=== PATIENT | male | born 1975 | race African-American/Black ===

== ENCOUNTER 2017-08-08 07:49 | Emergency (ER) | payer SELFPAY ==
[2017-08-08] MEDS ORDERED: Ketorolac Tromethamine 30 MG/ML VIAL ONE (08:13)
--- NOTE | 2017-08-08 09:01 | RAD ---
PA AND LATERAL CHEST: History: Trauma, right sided chest pain, rib pain. FINDINGS: The heart size is normal. The lungs are expanded without focal areas of consolidation or pneumothorax or pleural effusions. No definite acute osseous abnormalities are seen. IMPRESSION: 1. No radiographic evidence of acute cardiopulmonary process. 2. If there is high clinical suspicion for a rib fracture, further evaluation with dedicated rib seri es would be helpful. POS: [facility]
== END 2017-08-08 09:51 | disposition home or self-care (01) ==
LOC: ERS 07:49
DX: S20.212A Contusion of left front wall of thorax, initial encounter (principal); F17.210 Nicotine dependence, cigarettes, uncomplicated; Y04.0XXA Assault by unarmed brawl or fight, initial encounter
CPT/HCPCS: 71046; 96374; 96375; J1885; J2270

== ENCOUNTER 2019-02-19 22:40 | Emergency (ER) | payer SELFPAY ==
[2019-02-19] MEDS ORDERED: Ketorolac Tromethamine 30 MG/ML VIAL ONE (23:06)
== END 2019-02-19 23:31 | disposition home or self-care (01) ==
LOC: ERS 22:40
DX: K02.9 Dental caries, unspecified (principal); K08.89 Other specified disorders of teeth and supporting structures
CPT/HCPCS: 96372; 99282; J1885